=== PATIENT | female | born 1960 | race Caucasian/White ===

== ENCOUNTER 2017-02-16 09:55 | Emergency (ER) | payer BC, OTHER ==
[2017-02-16 10:04] VITALS: BMI 22.3
--- NOTE | 2017-02-16 10:29 | PDOC ---
History of Present Illness <Hal Parker - Last Filed: 02/16/17 12:37> - General History Source: Patient Exam Limitations: No Limitations - History of Present Illness Initial Comments: 02/16/17 13:55 The patient is a 56 year old female, with no significant past medical history, who presents to the emergency department with diarrhea for the past 3 days. She describes her diarrhea as nonbloody and watery in nature. She reports that she had mild abdominal pain which resolved after having a bowel movement. She notes that tea and water go straight though her. She also reports that she took pepcid and imodium without any relief of her symptoms. She notes that she had a recent physical examination. She denies taking any recent new medications or antibiotic use. She denies any dietary changes. The patient denies chest pain, shortness of breath, headache and dizziness. Denies fever, chills, nausea, vomit and constipation. Denies dysuria, frequency , urgency and hematuria. Allergies: None Past surgical history: Tubal ligation and left knee arthroscopy Social history: No alcohol, tobacco or drug use reported PMD: Dr. Lo <Casey Hayes - Last Filed: 02/16/17 13:56> - General Chief Complaint: Diarrhea Stated Complaint: DEHYDRATED, ABD PAIN, DIARRHEA Time Seen by Provider: 02/16/17 10:28 Past History - Past Medical History Anemia: No Asthma: No Cancer: No Cardiac Disorders: No CVA: No COPD: No CHF: No Dementia: No Diabetes: No GI Disorders: No Disorders: No HTN: No Hypercholesterolemia: No Liver Disease: No Seizures: No Thyroid Disease: No Other medical history: none - Surgical History Abdominal Surgery: Yes (tubal ligation) Appendectomy: No Cardiac Surgery: No Lung Surgery: No Neurologic Surgery: No Orthopedic Surgery: Yes (LT KNEE ARTHROSCOPY) - Psycho/Social/Smoking Cessation Hx Anxiety: No Suicidal Ideation: No Smoking History: Never smoked Have you smoked in the past 12 months: No If you are a former smoker, when did you quit?: 17 YRS AGO Information on smoking cessation initiated: No Hx Alcohol Use: No Drug/Substance Use Hx: No Substance Use Type: None <Hal Parker - Last Filed: 02/16/17 12:37> <Casey Hayes - Last Filed: 02/16/17 13:56> - Past Medical History Allergies/Adverse Reactions: Allergies Allergy/AdvReac Type Severity Reaction Status Date / Time No Known Allergies Allergy Verified 02/16/17 10:00 Home Medications: Ambulatory Orders NK [No Known Home Medication] 02/16/17 Review of Systems - Review of Systems Able to Perform ROS?: Yes Comments:: 02/16/17 13:56 CONSTITUTIONAL: No reported: Fever, Chills, Diaphoresis, Generalized Weakness, Malaise, Loss of Appetite HEENT: No reported: Rhinorrhea, Nasal Congestion, Throat Pain, Throat Swelling, Difficulty Swallowing, Mouth Swelling, Ear Pain, Eye Pain, Visual Changes CARDIOVASCULAR: No reported: Chest Pain, Syncope, Palpitations, Irregular Heart Rate, Lightheadedness, Peripheral Edema RESPIRATORY: No reported: Cough, Shortness of Breath, SOB with Exertion, Orthopnea, Wheezing , Stridor, Hemoptysis GASTROINTESTINAL: Reported: Diarrhea No reported: Abdominal pain, Abdominal Distension, Nausea, Vomiting, Constipation, Melena, Hematochezia GENITOURINARY: No reported: Dysuria, Frequency, Urgency, Hesitancy, Flank Pain, Genital Pain MUSCULOSKELETAL: No reported: Myalgia, Arthralgia, Joint Swelling, Back pain, Neck Pain SKIN: No reported: Rash, Itching, Pallor HEMEATOLOGIC/IMMUNOLOGIC: No reported: Easy Bleeding, Easy Bruising, Lymphadenopathy, Frequent infections ENDOCRINE: No reported: Unexplained Weight Gain, Unexplained Weight Loss, Heat Intolerance , Cold Intolerance NEUROLOGIC: No reported: Headache, Focal Weakness, Paresthesias, Vertigo, Lightheadedness, Unsteady Gait, Seizure, Mental Status Changes, Incontinence PSYCHIATRIC: No reported: Anxiety, Depression <Casey Hayes - Last Filed: 02/16/17 13:56> *Physical Exam - Vital Signs Last Vital Signs Temp Pulse Resp BP Pulse Ox 98.0 F 66 18 121/73 100 02/16/17 10:01 02/16/17 10:01 02/16/17 10:01 02/16/17 10:01 02/16/17 10:01 <Hal Parker - Last Filed: 02/16/17 12:37> - Vital Signs Last Vital Signs Temp Pulse Resp BP Pulse Ox 97.8 F 64 18 114/69 98 02/16/17 13:04 02/16/17 13:04 02/16/17 13:04 02/16/17 13:04 02/16/17 13:04 - Physical Exam Comments: 02/16/17 13:56 GENERAL: The patient is awake, alert, and fully oriented, Nontoxic - in no acute distress. HEAD: Normocephalic, atraumatic. EYES: extraocular movements intact, sclera anicteric, conjunctiva clear. ENT: Normal voice, Moist mucous membranes. NECK: Normal range of motion, supple LUNGS: Breath sounds equal, clear to auscultation bilaterally. No wheezes, no rhonchi, no rales. HEART: Regular rate and rhythm, without murmur, rub or gallop. ABDOMEN: +Hyperactive bowel sounds. Soft, nontender. No guarding, no rebound.No CVA tenderness EXTREMITIES: Normal range of motion, no edema. No clubbing or cyanosis. No cords, erythema, or tenderness. NEUROLOGICAL: No facial assymetry, Normal speech, PSYCH: Normal mood, normal affect. SKIN: Warm, Dry, normal turgor <Casey Hayes - Last Filed: 02/16/17 13:56> ED Treatment Course - LABORATORY CBC & Chemistry Diagram: 02/16/17 10:35 02/16/17 10:35 <Hal Parker - Last Filed: 02/16/17 12:37> - LABORATORY CBC & Chemistry Diagram: 02/16/17 10:35 02/16/17 10:35 - ADDITIONAL ORDERS Additional order review: Laboratory Results 02/16/17 02/16/17 10:57 10:35 Sodium 143 Potassium 3.8 Chloride 107 Carbon Dioxide 27 Anion Gap 9 BUN 9 Creatinine 0.6 Creat Clearance w eGFR > 60 Random Glucose 96 Lactic Acid 0.762 Calcium 9.2 Total Bilirubin 0.6 AST 20 ALT 27 Alkaline Phosphatase 71 Total Protein 7.2 Albumin 3.9 02/16/17 10:35 RBC 4.59 MCV 93.6 MCHC 33.4 RDW 13.7 MPV 8.5 Neutrophils % 64.1 Lymphocytes % 21.3 Monocytes % 9.1 Eosinophils % 4.9 H Basophils % 0.6 - Medications Given in the ED: ED Medications Discontinued Medications Generic Name Dose Route Start Last Admin Trade Name Freq PRN Reason Stop Dose Admin Sodium Chloride 1,000 mls @ 1,000 mls/hr 02/16/17 10:30 02/16/17 11:05 Normal Saline - IV 02/16/17 11:29 1,000 mls/hr .Q1H ONE Administration <Casey Hayes - Last Filed: 02/16/17 13:56> Medical Decision Making - Medical Decision Making 02/16/17 10:59 56y F no pmhx presents with diarrhea x 3 days without significant abdominal pain , but she does endorse some pain just prior to her BMs, no assocaited fever/ chlls, blood in stool/melena, recent travel, recent abx, known sick contacts. On eaxm pt well appearing,in no distress, vitals normal. suspect viral cause, elliott ck lytes/labs will give fluids will reassess abdomen - no tenderness in abdomen to suggest acute surgical cuase A portion of this note was documented by scribe services under my direction. I have reviewed the details of the note, within reason, and agree with the documentation with the following case summary and management plan written by me 02/16/17 12:33 pts labs unremarkable pt feeling improved her abd was resassesed and it was nontender susupect viral enteritis will d/c the pt with pmd fu return precautions were discussed I discussed the physical exam findings, ancillary test results and final diagnoses with the patient. I answered all of the patient's questions. The patient was satisfied with the care received and felt comfortable with the discharge plan and treatment plan. The patient will call their primary care physician within 24 hours to arrange follow-up and will return to the Emergency Department with any new, persistent or worsening symptoms. <Hal Parker - Last Filed: 02/16/17 12:37> *DC/Admit/Observation/Transfer - Discharge Dispostion Admit: No <Hal Parker - Last Filed: 02/16/17 12:37> - Attestations Scribe Attestion: 02/16/17 13:56 Documentation prepared by Casey Hayes, acting as medical laboratory technical officer for Hal Parker MD <Casey Hayes - Last Filed: 02/16/17 13:56> Diagnosis at time of Disposition: Diarrhea Qualifiers: Diarrhea type: unspecified type Qualified Code(s): R19.7 - Diarrhea, unspecified - Discharge Dispostion Disposition: HOME Condition at time of disposition: Improved - Referrals Referrals: Maxwell Lo MD [Primary Care Provider] - - Patient Instructions Printed Discharge Instructions: DI for Diarrhea and Traveler's Diarrhea -- Adult Additional Instructions: Return to the emergency department immediately with ANY new, persistent or worsening symptoms including any fever, blood or mucus in your stool, persistent abdominal pain. Make sure you stay well hydrated and are eating regularly. Your sypmtoms should gradually resolve over the next few days. Stay near a restroom. You MUST call and follow up with your doctor in 2-3 days for further evaluation of your symptoms. Results were discussed with you. Please make sure your doctor reviews the results of your emergency evaluation. Print Language: KITTITIAN - Post Discharge Activity Work/School Note: Back to Work
[2017-02-16] MEDS ORDERED: SODIUM CHLORIDE 1,000 ML IV ONE (10:30)
[2017-02-16 11:28] LABS: BASOPHIL 0.6 % (0-2.0); EOSINOPHIL 4.9 % (0-4.5); MCH 31.3 pg (25.7-33.7); MCHC 33.4 g/dl (32.0-36.0); MEAN CELL VOLUME 93.6 fl (80-96); MEAN PLT VOLUME 8.5 fl (7.5-11.1); NEUTROPHILS 64.1 % (42.8-82.8); PLATELET COUNT 187 K/MM3 (134-434); RDW 13.7 % (11.6-15.6); WHITE BLOOD COUNT 6.4 K/mm3 (4.0-10.0)
[2017-02-16 11:53] LABS: ALBUMIN 3.9 g/dl (3.4-5.0); ANION GAP 9 (8-16); BILIRUBIN,TOTAL 0.6 mg/dL (0.2-1.0); CALCIUM 9.2 mg/dL (8.5-10.1); CO2 27 mmol/L (21-32); CREATININE 0.6 mg/dL (0.55-1.02); GLUCOSE,RANDOM 96 mg/dL (74-106); SGOT/AST 20 U/L (15-37); SGPT/ALT 27 U/L (12-78); TOT PROT 7.2 g/dl (6.4-8.2)
[2017-02-16 11:54] LABS: ALK PHOS 71 U/L (45-117)
[2017-02-16 13:05] VITALS: BP 114/69; PULSE 64; TEMP 97.8
== END 2017-02-16 13:25 | disposition home or self-care (01) ==
LOC: JER 09:55
PROC: 3E0337Z Introduction of Electrolytic and Water Balance Substance into Peripheral Vein, Percutaneous Approach (ICD-10-PCS; principal; 2017-02-16)
DX: R19.7 Diarrhea, unspecified (principal); Z87.891 Personal history of nicotine dependence
CPT/HCPCS: 36415; 80053; 83605; 85025; 99284-25

== ENCOUNTER 2018-08-10 06:48 | Day surgery (SDC) | payer BC ==
[2018-08-09 14:03] VITALS: BMI 28.2
[2018-08-10 09:00] VITALS: TEMP 97.7
[2018-08-10 09:47] VITALS: BP 101/60; PULSE 52
--- NOTE | 2018-08-11 09:28 | PATH ---
Surgical Pathology Report Patient Name: LEW JACQUES [facility]. Rec. #: [id number] /Age/Gender: 1960 (Age: 58) / F Account: [id number] Location: [facility]-ENDOSCOPY Taken: 08/10/2018 Received: 08/10/2018 Reported: 08/11/2018 Physicians: Nelly Lux M.D. Specimen(s) Received ASCENDING COLON POLYP Clinical History Adenoma surveillance Postoperative diagnosis: Diverticulosis, polyp Final Diagnosis ASCENDING COLON, BIOPSY: TUBULAR ADENOMA. Electronically Signed Payton Christina M.D. Gross Description Received in formalin, labeled "biopsy ascending colon" are 2 eldridge, irregular portions of soft tissue measuring 0.1 and 0.2 cm. in greatest dimension. The specimens are submitted in toto in one cassette. 08/10/201808/10/2018
== END 2018-08-10 09:47 | disposition home or self-care (01) ==
LOC: JASU-ENDO 06:48
PROVIDERS: ATTEND Internal Medicine Gastroenterology
PROC: 0DBK8ZX Excision of Ascending Colon, Via Natural or Artificial Opening Endoscopic, Diagnostic (ICD-10-PCS; principal; 2018-08-10 08:00)
DX: Z12.11 Encounter for screening for malignant neoplasm of colon (principal); Z86.010 Personal history of colon polyps; K63.5 Polyp of colon; K64.8 Other hemorrhoids; K57.30 Diverticulosis of large intestine without perforation or abscess without bleeding; K63.89 Other specified diseases of intestine
CPT/HCPCS: 88305-TC

== ENCOUNTER 2024-01-21 04:38 | Day surgery (SDC) | payer BC, OTHER ==
[2024-01-19 12:44] VITALS: BMI 25.9
[2024-01-21 12:55] VITALS: TEMP 98
[2024-01-21 13:30] VITALS: BP 109/60; PULSE 60; RESP 13
== END 2024-01-21 13:38 | disposition home or self-care (01) ==
LOC: JASU-ENDO 04:38
PROVIDERS: ATTEND Internal Medicine Gastroenterology
PROC: 0DBC8ZX Excision of Ileocecal Valve, Via Natural or Artificial Opening Endoscopic, Diagnostic (ICD-10-PCS; principal; 2024-01-21 12:00)
DX: Z12.11 Encounter for screening for malignant neoplasm of colon (principal); D12.0 Benign neoplasm of cecum; K64.8 Other hemorrhoids; K64.4 Residual hemorrhoidal skin tags; K57.30 Diverticulosis of large intestine without perforation or abscess without bleeding; Z86.010 Personal history of colon polyps
CPT/HCPCS: 88305-TC